=== PATIENT | female | born 1970 | race Caucasian/White ===

== ENCOUNTER → 2022-10-28 11:08 | Outpatient (CLI) | payer OTHER, SELFPAY ==
[2022-10-28 11:40] LABS: COVID19 -Nasal RAPID Negative (Negative)
--- NOTE | 2022-10-29 18:23 | DI.NM.S_ITS ---
DATE OF SERVICE: 10/28/2022 PROCEDURE PERFORMED: Exercise treadmill stress and rest myocardial perfusion imaging with gating to assess ejection fraction and regional wall motion. ORDERING PROVIDER: Dr. Mikey Webb. INDICATIONS: The patient is a 52-year-old female with hypertension, bilateral arm numbness, and chest discomfort. EXERCISE TREADMILL TESTING: The patient was able to exercise for 9 minutes, 1 second on a standard Graham protocol, suggesting good exercise capacity with an JENNIFER of -20%. She had an accelerated heart rate response to exercise with a resting heart rate of 101 BPM, increasing to 138 BPM after 3 minutes of exercise and achieving a maximum heart rate of 170 BPM (102% of her predicted maximum). She had a normal blood pressure response and denied any chest discomfort or anginal symptoms. Her resting ECG shows sinus rhythm with normal ST segments and there are no significant ST-segment shifts with stress. There are rare isolated PVCs but no concerning arrhythmias. Per protocol, 24.9 millicuries of technetium-99m Myoview was injected after 6 minutes of exercise at a heart rate of 150 BPM. She was scanned 20 minutes later using a gated SPECT acquisition protocol. She returned the following day and was reinjected with an additional 25.6 millicuries of technetium-99m Myoview and was imaged 20 minutes later, again using a gated SPECT acquisition protocol. FINDINGS: 1. Raw data: There is good myocardial tracer uptake but mild breast shadows are noted. The lung/heart ratio is normal at 0.28 with a normal TID ratio of 0.67. 2. Quantitated gated SPECT: Post-stress ejection fraction is 81% without any focal wall motion abnormality. Resting ejection fraction is 84% with a normal end- diastolic volume of 98 mL. There is slightly increased tracer uptake in the right ventricular free wall which can be a sign of a right ventricular overload condition, but is nonspecific. 3. Myocardial perfusion imaging: Post-stress supine images shows a normal myocardial perfusion pattern without any perfusion defects, supported by normal perfusion imaging in the prone position. The resting images show an identical perfusion pattern without any areas of improvement. IMPRESSION: 1. Normal myocardial perfusion study for ischemia. 2. No evidence of myocardial ischemia or previous myocardial infarction. 3. Normal left ventricular size and function without focal wall motion abnormality. There is slightly increased right ventricular tracer uptake which can be an indication of a right ventricular overload condition but is nonspecific and clinical correlation is needed. 4. Good exercise capacity without angina or ECG evidence of ischemia. She had a mild resting tachycardia with an accelerated heart rate response to exercise but no arrhythmias except rare isolated PVCs. Sejal Harris - Johnathan/shameka doc#: [id number]/job#: [id number] dd: 10/29/2022 15:54:00 dt: 10/29/2022 18:12:00 DICTATING /COPIES TO: Joe Sheffield MD COPIES MNE: AYAAN;
== END ==
PROVIDERS: Internal Medicine Cardiovascular Disease; PCP Internal Medicine; Referring Provider Internal Medicine; Visit Provider Internal Medicine
DX: R07.89 Other chest pain (principal); I10 Essential (primary) hypertension; R20.0 Anesthesia of skin; Z20.822 Contact with and (suspected) exposure to COVID-19
CPT/HCPCS: 78452; 87635; 93017; A9502